=== PATIENT | female | born 1970 | race Caucasian/White ===

== ENCOUNTER 2023-06-04 10:20 | Outpatient (AMB) | payer MEDICAID, SELFPAY ==
--- NOTE | 2023-06-04 10:23 | A.OFFVIS_ITS ---
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 She is currently being prescribed oxycodone 5 mg BID prn, hydromorphine 2 mg QID, Gabapentin 300 mg TID, duloxetine 30 mg QD. Patient reports she was recently hospitalized for intractable pain with hospital pain regime that was continued at nursing rehab facility. She previously received methadone at the [facility] and has also been to [facility] and [facility] for pain management. Patient reports increasing low back pain and increased falls over the last 6 months due to shooting leg pain and weakness. She has pending EMG study and has completed lumbar spine xray and MRI at [facility]. These reports are not available today. Patient is hesitant towards interventional treatment options for her pain generators for a longer term pain management. Patient denies any bladder or bowel incontinence or saddle anesthesia. Location Whole body, bilateral feet, low back pain Duration Chronic pain for many years, fibromyalgia > 30 years Characteristics of symptom or complaint Pins and needles, burning, shooting, aching, throbbing, stabbing, sharp Aggravating or associated factors Walking, bending, kneeling, Relieving factors Pain medication, heat therapy, activity modifications Treatment PT, chiropractic therapy, massage, acupuncture, TENS unit, back injections [facility] Medical History (Updated 06/07/23 @ 10:57 by ROSANGELA Scott) Fibromyalgia Spinal stenosis Sciatica Neuropathy Hypertension Chronic pain Social History Alcohol intake: former Patient Tobacco Use Status: Former Tobacco user Review of Systems Const All systems reviewed & are unremarkable except as noted in HPI and below Physical Exam Vital Signs: Last Vital Signs Pulse 91 06/04/23 10:32 BP 123/86 06/04/23 10:32 Pulse Ox 97 06/04/23 10:32 Oxygen Delivery Method Room Air 06/04/23 10:32 BMI result Body Mass Index 32.1 General: Appears afebrile. Alert and oriented. Mood and affect appropriate. Follows and participates in conversation appropriately. Respiratory effort is unlabored. No cough. Able to transition from sit to stand unassisted. Ambulates with bilaterally normal heel strike and toe off. Multiple widespread TTPs 16/16 bilaterally, including upper and lower extremit ies. Back/Spine/Pelvis Cervical Spine: cervical muscular tenderness, pain with cervical ROM and No Cervical spine tenderness Thoracic/Lumbar Spine: thoracic and lumbar spine normal to inspection, Lasegue's sign negative, straight leg raise negative bilaterally, pain with thoraco-lumbar ROM, paraspinal muscle tenderness, thoraco-lumbar ROM limited, No thoracic spinal tenderness and lumbar spinal tenderness at L4 and at L5 Assessment & Plan Assessment & Plan (1) Chronic pain: Code(s): G89.29 - Other chronic pain (2) Fibromyalgia: Code(s): M79.7 - Fibromyalgia (3) Peripheral neuropathy: Code(s): G62.9 - Polyneuropathy, unspecified (4) Low back pain: Code(s): M54.50 - Low back pain, unspecified Plan Discussed management of fibromyalgia with patient. Patient would benefit from increased physical activity, either through formal physical therapy or by joining a gym, aqua therapy, gentle stretching exercises, sleep hygiene, weight optimization, and stress management. Patient was informed that our office does not offer opioid prescribing at this time. She is already on oxycodone, duloxetine, gabapentin and Dilaudid for medical management by her PCP. Patient may pursue CBT for sleep with psychotherapist and consider antidepressants and membrane stabilizers. I encouraged her to try to remain physically active. Patient may return for re-evaluation of her low chronic back pain. We briefly discussed interventional treatments for her pain generators, including neuromodulation, RFA, therapeutic vs diagnostic injections. All questions and concerns have been answered and patient agreed with the plan. Follow up as needed. Coding Level of Care Code New Pt Level 4 (50986) Diagnoses Chronic pain G89.29 Fibromyalgia M79.7 Peripheral neuropathy G62.9 Low back pain M54.50
[2023-06-04 10:32] VITALS: BP 123/86; PULSE 91; O2SAT 97; BMI 32.1
== END 2023-06-04 11:16 | disposition home or self-care (01) ==
PROVIDERS: Visit Provider Nurse Practitioner Family
DX: G89.29 Other chronic pain (principal); M79.7 Fibromyalgia; G62.9 Polyneuropathy, unspecified; M54.50 Low back pain, unspecified
CPT/HCPCS: 99204

== ENCOUNTER → 2023-06-04 10:20 | Outpatient (BNVA) | payer MEDICARE, MEDICAID, SELFPAY | PROVIDERS: Visit Provider Nurse Practitioner Family | DX: M79.7 Fibromyalgia (principal); G62.9 Polyneuropathy, unspecified; M54.50 Low back pain, unspecified; G89.29 Other chronic pain | CPT/HCPCS: 99212 ==